=== PATIENT | female | born 1980 | race Caucasian/White ===

== ENCOUNTER 2018-03-20 14:13 | Emergency (ER) | payer BC, OTHER ==
[2018-03-20 15:06] VITALS: BP 109/69
--- NOTE | 2018-03-20 16:07 | UC ---
Knee Pain HPI - HPI Summary HPI Summary: 37-year-old female onset of left knee pain, redness, swelling today. Describes pain as a constant aching. Nonradiating. Worsens with movement and touch. She has applied ice without significant improvement. Has not use OTC analgesics. She states that around mid-December she injured the same knee jumping off of a truck. States she felt a tearing sensation but was able to bear weight and ambulate immediately after the injury. She has had some intermittent knee pain since that time. No recent injuries noted. Denies fever, chills, weakness, numbness, or tingling. - History of Current Complaint Chief Complaint: UCLowerExtremity Stated Complaint: L KNEE PAIN Time Seen by Provider: 03/20/18 15:35 Hx Obtained From: Patient Hx Last Menstrual Period: 12/20/13 ?: No Onset/Duration: Sudden Onset, Lasting Hours Severity Currently: Moderate Pain Intensity: 4 Character: Aching Aggravating Factor(s): Movement, Other - touch Alleviating Factor(s): Nothing Associated Signs And Symptoms: Positive: Swelling, Redness. Negative: Bruising , Fever, Weakness, Numbness, Tingling - Risk Factors Septic Arthritis Risk Factor: Negative Gout Risk Factor: Negative - Allergies/Home Medications Allergies/Adverse Reactions: Allergies Allergy/AdvReac Type Severity Reaction Status Date / Time No Known Allergies Allergy Verified 03/20/18 15:06 PMH/Surg Hx/FS Hx/Imm Hx Previously Healthy: Yes Psychological History: Anxiety, Depression - Surgical History Surgical History: None - Family History Known Family History: Positive: Hypertension - Social History Occupation: Employed Full-time Lives: With Family Alcohol Use: Rare Substance Use Type: None Smoking Status (MU): Never Smoked Tobacco Review of Systems All Other Systems Reviewed And Are Negative: Yes Constitutional: Negative: Fever, Chills Skin: Positive: Other - Erythema left knee. Negative: Rash Respiratory: Negative: Shortness Of Breath, Cough Cardiovascular: Negative: Palpitations, Chest Pain Motor: Negative: Decreased ROM, Weakness Neurovascular: Negative: Decreased Sensation Musculoskeletal: Positive: Arthralgia - See HPI. Negative: Calf Tenderness Neurological: Negative: Weakness, Paresthesia, Numbness Is Patient Immunocompromised?: No Physical Exam Triage Information Reviewed: Yes Appearance: Well-Appearing, No Pain Distress, Well-Nourished Vital Signs: Initial Vital Signs Temp 97.9 F 03/20/18 15:00 Pulse 65 03/20/18 15:00 Resp 18 03/20/18 15:00 BP 109/69 03/20/18 15:00 Pulse Ox 100 03/20/18 15:00 Vital Signs Reviewed: Yes Respiratory: Positive: Lungs clear, Normal breath sounds, No respiratory distress Cardiovascular: Positive: RRR, No Murmur, Pulses Normal, Brisk Capillary Refill Musculoskeletal: Positive: Strength Intact, ROM Intact, Other: - Left knee with suprapatellar tenderness, erythema, increased warmth, and mild swelling. No gross deformity or crepitus. Negative anterior/posterior drawer. Negative valgus and varus. Neurological: Positive: Alert, Muscle Tone Normal, Other: - Sensation intact distally Skin: Positive: Other - See above Diagnostics - Radiology No standard instances Radiology Interpretation Completed By: Radiologist Summary of Radiographic Findings: Patient Name: NIMESH PARK Medical Record# : [id number]. Ordering Physician: Arya Paulino MD Acct.#: [id number]. : 1980 Age: 37 Sex: F Location: [facility] [place]. Exam Date: 03/20/18 1509 ADM Status: REG ER. Order Information: KNEE LEFT 4+ VWS. Accession Number: [id number]. CPT: 50596. Indication: Left knee pain. 4 views of left knee demonstrates no fracture. Joint spaces all well-preserved. Patellofemoral joint is unremarkable. IMPRESSION: Unremarkable left knee. Knee Pain Course/Dx - Course Course Of Treatment: 37-year-old female onset of left knee pain, redness, swelling today. Describes pain as a constant aching. Nonradiating. Worsens with movement and touch. She has applied ice without significant improvement. Has not use OTC analgesics. She states that around mid-December she injured the same knee jumping off of a truck. States she felt a tearing sensation but was able to bear weight and ambulate immediately after the injury. She has had some intermittent knee pain since that time. No recent injuries noted. Afebrile. Exam reveals suprapatellar tenderness, erythema, increased warmth, and mild swelling consistent with a prepatellar bursitis. No risk factors for infectious process. X-ray normal. Will treat with NSAIDs and RICE. Referral to orthopedic surgery if symptoms persist. Warning symptoms reviewed. Verbalizes understanding and agrees with POC. - Differential Dx/Diagnosis Differential Diagnosis/HQI/PQRI: Bursitis, Contusion, Fracture (Closed), Infection, Sprain, Tendonitis Provider Diagnoses: Prepatellar bursitis Discharge - Sign-Out/Discharge Documenting (check all that apply): Patient Departure All imaging exams completed and their final reports reviewed: Yes - Discharge Plan Condition: Stable Disposition: HOME Prescriptions: Naproxen [Naproxen 500 mg tab] 500 mg PO BID #30 tablet Patient Education Materials: Knee Bursitis (ED) Referrals: Dennis Seaman PA [Primary Care Provider] - Kevyn Roman MD [Medical Doctor] - 7 Days (If no improvement in symptoms. Call for appointment.) Additional Instructions: The x-ray of your knee performed in the office today was normal. I suspect that your symptoms are from a condition called prepatellar bursitis. Take naproxen 1 tab twice a day with food for next 7 days. After 7 days and may take twice a day as needed for pain. Do not take any other nonsteroidal anti-inflammatory medication such as ibuprofen (Advil, Motrin) or aspirin while taking this medication. You may take [id number] acetaminophen (Tylenol) according to directions if you need additional pain medication. Rest the leg as much as possible. You may continue to walk and bear weight as tolerated. Apply ice to the affected area for 15-20 minutes 4 times a day. Keep her leg elevated all seated to help reduce any swelling. I have given you a referral to Dr. Roman, orthopedic surgery, to follow-up with if her symptoms do not improve within one week. We will need to call for an appointment. Seek immediate medical attention in the emergency room if he developed any increased redness, swelling, pain that is not managed with pain medication, you are unable to bear weight on the leg, you have numbness or tingling in the leg, foot, or toes, or have any worsening of symptoms. - Billing Disposition and Condition Condition: STABLE Disposition: Home
== END 2018-03-20 16:31 | disposition home or self-care (01) ==
LOC: UCEAST 14:13
DX: M70.42 Prepatellar bursitis, left knee (principal)
CPT/HCPCS: 99212; G0463